=== PATIENT | male | born 1935 | race Caucasian/White ===

== ENCOUNTER → 2016-06-10 | Outpatient (CLI) | payer MEDICARE, OTHER | END | disposition home or self-care (01) | LOC: PCVCCLINIC 13:00 | PROVIDERS: ATTEND Internal Medicine | DX: I25.10 Atherosclerotic heart disease of native coronary artery without angina pectoris (principal); I10 Essential (primary) hypertension; E78.5 Hyperlipidemia, unspecified; I65.29 Occlusion and stenosis of unspecified carotid artery; I35.9 Nonrheumatic aortic valve disorder, unspecified | CPT/HCPCS: 80061; 93005; G0463 ==

== ENCOUNTER → 2016-08-18 | Outpatient (CLI) | payer MEDICARE, OTHER | END | disposition home or self-care (01) | LOC: PCVCCLINIC 15:00 | PROVIDERS: ATTEND Internal Medicine | DX: I10 Essential (primary) hypertension (principal); I49.3 Ventricular premature depolarization; E78.00 Pure hypercholesterolemia, unspecified; Z79.82 Long term (current) use of aspirin; Z79.899 Other long term (current) drug therapy; Z87.891 Personal history of nicotine dependence; Z88.0 Allergy status to penicillin; Z88.5 Allergy status to narcotic agent | CPT/HCPCS: 93005; G0463 ==

== ENCOUNTER → 2017-02-11 | Outpatient (CLI) | payer MEDICARE, OTHER | END | disposition home or self-care (01) | LOC: PCVCCLINIC 13:20 | PROVIDERS: ATTEND Internal Medicine | DX: I25.10 Atherosclerotic heart disease of native coronary artery without angina pectoris (principal); I49.3 Ventricular premature depolarization; I10 Essential (primary) hypertension; E78.5 Hyperlipidemia, unspecified; Z87.891 Personal history of nicotine dependence; Z79.82 Long term (current) use of aspirin | CPT/HCPCS: 80061; 93005; G0463 ==

== ENCOUNTER → 2018-02-09 | Outpatient (CLI) | payer MEDICARE, OTHER | END | disposition home or self-care (01) | LOC: PCVCCLINIC 13:53 | PROVIDERS: ATTEND Internal Medicine | DX: I25.10 Atherosclerotic heart disease of native coronary artery without angina pectoris (principal); I49.3 Ventricular premature depolarization; I10 Essential (primary) hypertension; E78.5 Hyperlipidemia, unspecified; Z87.891 Personal history of nicotine dependence; Z88.8 Allergy status to other drugs, medicaments and biological substances | CPT/HCPCS: 36415; 80061; 93005; G0463 ==

== ENCOUNTER → 2018-04-27 | Outpatient (CLI) | payer MEDICARE, OTHER | END | disposition home or self-care (01) | LOC: PCVCCLINIC 14:55 | PROVIDERS: ATTEND Internal Medicine | DX: I25.10 Atherosclerotic heart disease of native coronary artery without angina pectoris (principal); E78.5 Hyperlipidemia, unspecified; K21.9 Gastro-esophageal reflux disease without esophagitis | CPT/HCPCS: 36415 ==

== ENCOUNTER → 2018-04-29 | Outpatient (CLI) | payer MEDICARE, OTHER ==
[~2018-04-29] MED LIST: REGADENOSON 0.4 MG/5 ML DISP.SYRIN. IV ONE
--- NOTE | 2018-04-29 13:54 | PCVCIMAG ---
APPROVED REPORT Imaging Protocol: Rest Tc-99m/Stress Tc-99m 1 day Study performed: 04/29/2018 08:58:13 Indication: CAD, PVC's Patient Location: Out-Patient Stress Nurse: Rita Hardin RN, Casandra Collins RN NM Tech:Luis E Malone NMTCB Ht: 5 ft 5 in Wt: 164 lbs BSA: 1.82 m2 HR: 58 bpm BP: 174/74 mmHg BMI: 27.2 Rhythm: Sinus Rhythm, Incomplete RBBB Medical History Medical History: Age, Hyperlipidemia, CVD, Former Smoker Medications: ASA, Atorvastatin, Metoprolol, Omeprazole Allergies: Hydrocodone, Oxycodone, PCN Pretest Chest Pain Characteristics: No chest pain Meds Held (24 hrs): Metoprolol Resting Data Rest SPECT myocardial perfusion imaging was performed in supine position 45 minutes following the intravenous injection of 11.8 mCi of Tc-99m Sestamibi. Time of rest injection: 0900 Date: 04/29/2018 Administration Route: IV Administration Site: Right AC Pharmacologic Stress Pharmacologic stress test was performed by injecting Regadenoson 0.4 mg IV push over 10-15 seconds immediately followed by the intravenous injection of 31.2 mCi of Tc-99m Sestamibi. Time of stress injection: 1015 Date: 04/29/2018 Administration Route: IV Administration Site: Right AC Gated Stress SPECT was performed 45 minutes after stress injection. The images were gated to evaluate regional wall motion and calculate left ventricular ejection fraction. Stress Test Details Stress Test: Pharmacologic stress was paired with low level exercise. Reason for pharmacologic stress test: physical limitation. HRMax Heart Rate (APMHR): 139 bpm Resting HR: 58 bpmTarget HR (85% APMHR): 118 bpm Max HR Achieved: 96 bpm % of APMHR: 69 Recovery HR: 70 bpm BP Resting BP: 174/74 mmHg Max BP: 134/78 mmHg Recovery BP: 154/63 mmHg ECG Resting ECG: Sinus Rhythm, Incomplete RBBB Stress ECG: Sinus Rhythm, Incomplete RBBB ST Change: None Maximum ST Deviation: 0 mm Arrhythmia: None Recovery ECG: Sinus Rhythm, Incomplete RBBB Recovery ST Change: None Recovery ST Deviation: 0 mm Recovery Arrhythmia: None Clinical Reason for Termination: Completed protocol Stress Symptoms: Dyspnea Exercise duration: 4 min 00 sec Symptoms resolved with caffeine. Stress ECG Conclusion ECG: Non-ischemic Clinical: Non-ischemic Study Quality Study: Good Study Data Post stress, the left ventricular ejection was 79%.. SSS: 2 SRS: 2 SDS: 0 TID = 0.96. Perfusion No evidence of stress induced ischemia or prior myocardial infarction. Wall Motion Normal left ventricular size and function with no regional wall motion abnormalities. Nuclear Conclusion No evidence of stress induced ischemia or prior myocardial infarction. Normal left ventricular size and function with no regional wall motion abnormalities. Post stress, the left ventricular ejection was 79%. No prior study available for comparison. Interpreted by: Mariusz Cruz MD Electronically Approved: 04/29/2018 13:45:38 <Conclusion> ECG: Non-ischemic Clinical: Non-ischemic
== END | disposition home or self-care (01) ==
LOC: PCVCIMAG 08:33
PROVIDERS: ATTEND Internal Medicine
DX: I25.10 Atherosclerotic heart disease of native coronary artery without angina pectoris (principal); I49.3 Ventricular premature depolarization; R00.2 Palpitations
CPT/HCPCS: 78452; 93017; A9500; J2785

== ENCOUNTER → 2018-09-13 | Outpatient (CLI) | payer MEDICARE, OTHER ==
--- NOTE | 2018-09-13 17:11 | PCVCIMAG ---
APPROVED REPORT Indications Stenosis Risk Factors Hypertension: Doppler Spectral Velocity Analysis PSV / EDVPSV / EDV ECA (R) 106 / 11 cm/sECA (L) 83 / 13 cm/s dICA (R) 63 / 18 cm/sdICA (L) 60 / 19 cm/s Cassidy (R) 80 / 21 cm/smICA (L) 88 / 29 cm/s pICA (R) 94 / 19 cm/spICA (L) 85 / 21 cm/s Bulb (R) 76 / 17 cm/sBulb (L) 84 / 22 cm/s dCCA (R) 81 / 19 cm/sdCCA (L) 100 / 25 cm/s mCCA (R) 86 / 20 cm/smCCA (L) 99 / 24 cm/s Vert (R) 47 / 10 cm/sVert (L) 69 / 16 cm/s ICA/CCA 1.16ICA/CCA 0.88 Basic Measurements Blood Pressure: Pulses: Right Left RightLeft Brachial(Sitting) 132/04reIb858/70mmHgTemporal Real Time B-Mode Imaging Vert. (R)AntegradeVert. (L)Antegrade Findings RIGHT CAROTID: The carotid bulb has moderate plaque. The proximal internal carotid artery shows <40% stenosis. The common carotid artery shows no significant stenosis. The external carotid artery shows no significant stenosis. LEFT CAROTID: The carotid bulb has minimal plaque. The proximal internal carotid artery shows no significant stenosis. The common carotid artery shows no significant stenosis. The external carotid artery shows no significant stenosis. Conclusion <40% stenosis of the right internal carotid artery with moderate plaque. No significant stenosis of the left internal carotid artery with minimal plaque.
== END | disposition home or self-care (01) ==
LOC: PCVCIMAG 13:03
PROVIDERS: ATTEND Internal Medicine
DX: I65.21 Occlusion and stenosis of right carotid artery (principal); E78.5 Hyperlipidemia, unspecified; I10 Essential (primary) hypertension; Z88.0 Allergy status to penicillin; Z88.8 Allergy status to other drugs, medicaments and biological substances
CPT/HCPCS: 93880

== ENCOUNTER → 2019-02-08 | Outpatient (CLI) | payer MEDICARE, OTHER | END | disposition home or self-care (01) | LOC: PCVCCLINIC 15:28 | PROVIDERS: ATTEND Internal Medicine | DX: I25.10 Atherosclerotic heart disease of native coronary artery without angina pectoris (principal); I10 Essential (primary) hypertension; E78.5 Hyperlipidemia, unspecified; I49.3 Ventricular premature depolarization; K21.9 Gastro-esophageal reflux disease without esophagitis; Z79.82 Long term (current) use of aspirin; Z79.899 Other long term (current) drug therapy; Z88.8 Allergy status to other drugs, medicaments and biological substances; Z87.891 Personal history of nicotine dependence | CPT/HCPCS: 93005; G0463 ==